=== PATIENT | female | born 1945 | race Caucasian/White ===

== ENCOUNTER 2017-02-02 07:47 | Observation (INO) | payer MEDICARE, MEDICAID ==
[~2017-02-02] VITALS: Ht 167.6 cm; Wt 61.0 kg
[~2017-02-02 07:47] MED LIST: CEPH500T PO; TRAM50 PO
[2017-02-02 07:52] VITALS: BP 112/47; PULSE 77; RESP 14; TEMP 97.7; O2SAT 96
[2017-02-02] MEDS ORDERED: SODIUM CHLORIDE 0.9% FLUSH 10 ML FLUSH IV FLUSH PRN ×2 (08:15→15:15)
--- NOTE | 2017-02-02 08:23 | PD ---
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 Pain is RLQ, constant, nonradiating. Denies any fever, chest pain, sob, n/v, dysuria, hematuria, focal weakness or numbness. Pt has been having constipation and last bowel movement is 2 days ago. Pt has never had colonoscopy and refuses to. PFSH Past Medical History Cancer: Yes ( VAGINAL) Cerebrovascular Accident: Yes (???) Diminished Hearing: No Neurologic: Yes (PATIENT STATES SHE QUESTIONABLY HAS MS, unconfirmed by MRI) Past Surgical History Gynecologic Surgery: Yes (VAGINAL SQUAMOUS CELL REMOVAL) Other Surgery: Yes (VAG CA, BREAST AUG. ) Social History Alcohol Use: No Tobacco Use: Yes Substance Use: No Allergies-Medications (Allergen,Severity, Reaction): Coded Allergies: Codeine (Verified Adverse Reaction, Intermediate, dizzy, 03/30/16) Reported Meds & Prescriptions Reported Meds & Active Scripts Active Reported [magnesium] 400 Mg PO DAILY [vitamin b12] 1,000 Mg IJ WEEKLY Aspirin 81 Mg Chew 81 Mg CHEW DAILY Review of Systems Except as stated in HPI: all other systems reviewed are Neg Physical Exam Narrative GENERAL: 71yo F not in distress. SKIN: Focused skin assessment warm/dry. HEAD: Atraumatic. Normocephalic. CARDIOVASCULAR: Regular rate and rhythm. No murmur appreciated. RESPIRATORY: No accessory muscle use. Clear to auscultation. Breath sounds equal bilaterally. GASTROINTESTINAL: Abdomen soft, +TTP suprapubic region. + RLQ. No rebound tenderness or guarding. +BS. MUSCULOSKELETAL: No obvious deformities. No clubbing. No cyanosis. No edema. NEUROLOGICAL: Awake and alert. No obvious cranial nerve deficits. Motor grossly within normal limits. Normal speech. PSYCHIATRIC: Appropriate mood and affect; insight and judgment normal. Data Data Last Documented VS Vital Signs Date Time Temp Pulse Resp B/P Pulse Ox O2 Delivery O2 Flow Rate FiO2 02/02/17 12:51 62 16 89/58 95 02/02/17 11:11 Room Air 02/02/17 07:52 97.7 Orders Urinalysis - C+S If Indicated (02/02/17 07:54) Complete Blood Count With Diff (02/02/17 08:12) Comprehensive Metabolic Panel (02/02/17 08:12) Lipase (02/02/17 08:12) Prothrombin Time / Inr (Pt) (02/02/17 08:12) Act Partial Throm Time (Ptt) (02/02/17 08:12) Ct Abd/Pel W Iv Contrast(Rout) (02/02/17 08:12) Iv Access Insert/Monitor (02/02/17 08:12) Ecg Monitoring (02/02/17 08:12) Oximetry (02/02/17 08:12) Sodium Chloride 0.9% Flush (Ns Flush) (02/02/17 08:15) Iohexol 350 Inj (Omnipaque 350 Inj) (02/02/17 11:08) Consult General Surgery (02/02/17 ) NPO (02/02/17 12:24) D5-1/2 Ns + Kcl 20 Meq Inj (D5-1/2 Ns + (02/02/17 12:30) (Hub Use Only)Inp Phy Cons/Ref (02/02/17 ) Bupivacaine-Epi Pf 0.25% Inj (Marcaine-E (02/02/17 13:50) Bupivacaine Pf 0.5% Inj (Marcaine Pf 0.5 (02/02/17 13:50) Admit Order (Ed Use Only) (02/02/17 14:07) Labs Laboratory Tests Test 02/02/17 08:38 White Blood Count 8.6 TH/MM3 Red Blood Count 3.91 MIL/MM3 Hemoglobin 13.1 GM/DL Hematocrit 37.2 % Mean Corpuscular Volume 95.2 FL Mean Corpuscular Hemoglobin 33.4 PG Mean Corpuscular Hemoglobin 35.1 % Concent Red Cell Distribution Width 11.9 % Platelet Count 252 TH/MM3 Mean Platelet Volume 8.8 FL Neutrophils (%) (Auto) 66.4 % Lymphocytes (%) (Auto) 23.0 % Monocytes (%) (Auto) 8.1 % Eosinophils (%) (Auto) 2.0 % Basophils (%) (Auto) 0.5 % Neutrophils # (Auto) 5.7 TH/MM3 Lymphocytes # (Auto) 2.0 TH/MM3 Monocytes # (Auto) 0.7 TH/MM3 Eosinophils # (Auto) 0.2 TH/MM3 Basophils # (Auto) 0.0 TH/MM3 CBC Comment DIFF FINAL Differential Comment Prothrombin Time 11.2 SEC Prothromb Time International 1.0 RATIO Ratio Activated Partial 33.7 SEC Thromboplast Time Urine Collection Type CLEAN CATCH Urine Color YELLOW Urine Turbidity SLIGHT Urine pH 6.0 Urine Specific [place] 1.015 Urine Protein TRACE mg/dL Urine Glucose (UA) NEG mg/dL Urine Ketones NEG mg/dL Urine Occult Blood TRACE Urine Nitrite NEG Urine Bilirubin NEG Urine Leukocyte Esterase NEG Urine RBC 4-9 /hpf Urine WBC 0-2 /hpf Urine Squamous Epithelial 6-8 /hpf Cells Urine Amorphous Sediment MOD Microscopic Urinalysis Comment CULT NOT INDICATED Urine Collection Time 0838 Sodium Level 142 MEQ/L Potassium Level 3.8 MEQ/L Chloride Level 109 MEQ/L Carbon Dioxide Level 25.8 MEQ/L Anion Gap 7 MEQ/L Blood Urea Nitrogen 12 MG/DL Creatinine 0.53 MG/DL Estimat Glomerular Filtration 113 ML/MIN Rate Random Glucose 100 MG/DL Calcium Level 9.0 MG/DL Total Bilirubin 0.8 MG/DL Aspartate Amino Transf 16 U/L (AST/SGOT) Alanine Aminotransferase 16 U/L (ALT/SGPT) Alkaline Phosphatase 84 U/L Total Protein 7.1 GM/DL Albumin 3.3 GM/DL Lipase 95 U/L [facility] Medical Decision Making Medical Screen Exam Complete: Yes Emergency Medical Condition: Yes Differential Diagnosis Appendicitis vs. cystitis vs. nephrolithiasis vs. colitis vs. malignancy vs. constipation Narrative Course 71yo F with lower abdominal pain since yesterday. Pt currently does not want any pain medication. She is well appearing. Labs reviewed, no leukocytosis. Lipase normal. CMP unremarkable. UA showed 4-9 RBC. +Squamous. Culture not indicated. CT a/p showed findings questionable for mild case of acute appendicitis in the appropriate clinical setting. Pt reevaluated at bedside and still has point tenderness in RLQ. Discussed with general surgeon Dr. Howard at 11:51am and he states that he will come evaluate the patient. I am keeping her NPO at this time with maintenance IVF. Also informed pt of the questionable right lung base nodules and to follow up with CT chest in [address] given to patient. Pt is admitted to same day surgery under Dr. oHward. Diagnosis Primary Impression: Appendicitis Qualified Code: K35.80 - Acute appendicitis, unspecified acute appendicitis type Admitting Information Admitting Physician Requests: it Sonal Mauricio DO Feb 02, 2017 08:23
[2017-02-02 08:44] LABS: AUTOMATED NEUTROPHIL # 5.7 TH/MM3 (1.8-7.7); BASOPHIL % 0.5 % (0.0-2.0); EOSINOPHIL # 0.2 TH/MM3 (0-0.4); HEMATOCRIT 37.2 % (35.0-46.0); HEMO FLAGS DIFF FINAL; MEAN CELL VOLUME 95.2 FL (80.0-100.0); MEAN CORPUSCULAR HEMOGLOBIN 33.4 PG (27.0-34.0); MEAN CORPUSCULAR HGB CONC 35.1 % (32.0-36.0); MONO % 8.1 % (0.0-8.0); NEUT % 66.4 % (16.0-70.0); PLATELET COUNT 252 TH/MM3 (150-450); RED BLOOD COUNT 3.91 MIL/MM3 (4.00-5.30); RED CELL DISTRIBUTION WIDTH 11.9 % (11.6-17.2); WHITE BLOOD COUNT 8.6 TH/MM3 (4.0-11.0)
[2017-02-02 08:45] LABS: BLOOD, URINE TRACE (NEG); GLUCOSE,URINE NEG (NEG); KETONE, URINE NEG (NEG); NITRITE,URINE NEG (NEG)
[2017-02-02 08:47] LABS: METHOD OF COLLECTION CLEAN CATCH; URINE COLOR YELLOW (YELLW/STRAW)
[2017-02-02 08:50] LABS: COMMENT (UR) CULT NOT INDICATED; COMMENT2 (UR) MUCOUS PRESENT; CULTURE IF INDICATED CULT NOT INDICATED; WBC, URINE 0-2 /hpf (0-5)
[2017-02-02 08:52] LABS: CHLORIDE 109 MEQ/L (98-107); POTASSIUM 3.8 MEQ/L (3.5-5.1); SODIUM (NA) 142 MEQ/L (136-145)
[2017-02-02 08:56] LABS: ANION GAP 7 MEQ/L (5-15); APTT (PATIENT) 33.7 SEC (24.3-30.1); BICARBONATE 25.8 MEQ/L (21.0-32.0); BLOOD UREA NITROGEN 12 MG/DL (7-18); PROTHROMBIN TIME - PATIENT 11.2 SEC (9.8-11.6)
[2017-02-02 08:58] LABS: ALT (GPT) 16 U/L (10-53); AST (GOT) 16 U/L (15-37)
[2017-02-02 08:59] LABS: GLOMERULAR FILTRATION RATE 113 ML/MIN (>89)
[2017-02-02 09:00] LABS: TOTAL BILIRUBIN ADULT 0.8 MG/DL (0.2-1.0)
[2017-02-02 09:01] LABS: ALKALINE PHOSPHATASE 84 U/L (45-117)
[2017-02-02] MEDS ORDERED: IOHEXOL 350 MG/ML 10 ML VIAL (for RAD DIAG) IV ONE (11:08)
[2017-02-02 11:11] VITALS: BP 94/55; PULSE 63; RESP 18; O2SAT 97
--- NOTE | 2017-02-02 11:25 | RADRPT ---
EXAM DATE/TIME: 02/02/2017 10:45 [place] COMPARISON: No previous studies available for comparison. INDICATIONS : Right lower quadrant pain for one day, chronic constipation for three months. IV CONTRAST: 85 cc Omnipaque 350 (iohexol) IV ORAL CONTRAST: No oral contrast ingested. RADIATION DOSE: 7.33 CTDIvol (mGy) MEDICAL HISTORY : Stroke. Carcinoma, vulva. SURGICAL HISTORY : Vaginal surgery, breast augmentation. ENCOUNTER: Initial ACUITY: 1 day PAIN SCALE: 8/10 LOCATION: Right lower quadrant TECHNIQUE: Volumetric scanning of the abdomen and pelvis was performed. Using automated exposure control and ad justment of the mA and/or kV according to patient size, radiation dose was kept as low as reasonably achievable to obtain optimal diagnostic quality images. DICOM format image data is available electro nically for review and comparison. FINDINGS: CT Abdomen: Incidental note is made of an approximate 2.3 cm cyst in the left hepatic lobe with sligh t calcification adjacent to it. The spleen, pancreas, kidneys, adrenals are unremarkable. There is no evidence for any appreciable pathological adenopathy, free fluid, or bowel obstruction. There is a q uestionable tiny 3-4 mm nodule versus tortuous blood vessel right lower lobe. Chronic vascular calci fications are present involving the aorta, iliac arteries without any significant stenosis or aneurys mal dilatations for technique. CT pelvis: There is no evidence for mass, abscess formation, or any significant adenopathy within the pelvis. Appendix is slightly prominent in size without any significant inflammatory changes surround ing it, however mild case of acute appendicitis is not excluded. There is a 2.9 cm masslike area in t he left adnexa may be partially the patient's ovary, however an exophytic fibroid is difficult to exc lude. CONCLUSION: 1. Findings are questionable for mild case of acute appendicitis in the appropriate clinical setting. 2. Questionable tiny right lung base nodule versus overlap of tortuous blood vessels, noncontrast [facility] st CT is suggested in 6 months as a conservative follow up. 3. Probable prominent left ovary, however a small exophytic fibroid is difficult to exclude. Nataliia Hanson MD on February 02, 2017 at 11:11 Board Certified Radiologist. This report was verified electronically.
[2017-02-02] MEDS ORDERED: PROPOFOL 200 MG/20 ML AMP IV ONE (12:00)
[2017-02-02] MEDS ORDERED: ONDANSETRON HCL 4 MG/2 ML VIAL IV PUSH ONE (12:00)
[2017-02-02] MEDS ORDERED: D5-1/2 NS + KCL 20 MEQ INJ 1,000 ML IV SCH (12:30)
[2017-02-02 12:51] VITALS: BP 89/58; PULSE 62; RESP 16; O2SAT 95
[2017-02-02] MEDS ORDERED: BUPIVACAINE/EPINEPHRINE 0.25% PF 30 ML VIAL ONE (13:50)
[2017-02-02] MEDS ORDERED: BUPIVACAINE HCL PF 0.5% 30 ML VIAL ONE (13:50)
[2017-02-02] MEDS ORDERED: fentaNYL CITRATE 250 MCG/5 ML AMP ONE (14:16)
[2017-02-02] MEDS ORDERED: vitamin b12 IJ (15:06)
[2017-02-02] MEDS ORDERED: ASPI81CH CHEW (15:06)
[2017-02-02] MEDS ORDERED: magnesium PO (15:07)
[2017-02-02] MEDS: SODIUM CHLOR 0.9% 1000 ML INJ 1,000 ML IV SCH ×2 (15:13→16:13)
[2017-02-02] MEDS ORDERED: ONDANSETRON HCL 4 MG/2 ML VIAL IV PRN (15:15)
[2017-02-02] MEDS ORDERED: Post-op Orders (for Pharmacy) MISC XX ONE (15:15)
[2017-02-02] MEDS ORDERED: ACETAMINOPHEN/HYDROcodone 325 MG/5 MG TAB PO PRN ×2 (15:15)
[2017-02-02] MEDS ORDERED: ceFAZolin INJ 1,000 MG VIAL ONE (15:17)
[2017-02-02] MEDS ORDERED: SODIUM CHLORIDE 0.9% INJ 50 ML ONE (15:20)
[2017-02-02] MEDS ORDERED: LACTATED RINGER'S 1000 ML INJ 1,000 ML ONE (15:32)
--- NOTE | 2017-02-02 15:32 | HHI.PR ---
Immediate Post Op Note Procedure Date: Feb 02, 2017 Pre Op Diagnosis: acute appendicitis Post Op Diagnosis: same Surgeon: Graham Howard MD Procedure: lap appy Findings: distended appendix, non perforated Complications: none Specimen(s) removed: appendix Estimated blood loss: 5cc Anesthesia: General Drains: None Patient to: PACU Patient Condition: Good Graham Howard MD Feb 02, 2017 15:32
[2017-02-02] MEDS ORDERED: SUGAMMADEX SODIUM 200 MG/2 ML VIAL IV PUSH ONE ×2 (16:24)
[2017-02-02] MEDS ORDERED: LORazepam 2 MG/ML VIAL ONE (16:30)
[2017-02-02] MEDS ORDERED: RESP: ALBUTEROL 2.5 MG/3 ML NEB (PRN) ONE (16:32)
[2017-02-02] MEDS ORDERED: methylPREDNISolone SOD SUCC 125 MG/2 ML VIAL ONE (16:52)
[2017-02-02] MEDS ORDERED: metroNIDAZOLE 500 MG INJ 100 ML IV ONE (18:14)
[2017-02-02] MEDS ORDERED: DO NOT ADM ANY ANTICOAGULANT DRUGS PRN (19:00)
[2017-02-02 19:35] VITALS: O2SAT 94
[2017-02-02 20:00] VITALS: BP 93/73; PULSE 90; RESP 18; TEMP 98.3; O2SAT 92
[2017-02-02] MEDS ORDERED: SODIUM CHLORIDE 0.9% FLUSH 10 ML FLUSH IV FLUSH SCH (21:00)
[2017-02-02] MEDS ORDERED: DOCUSATE SODIUM 100 MG CAP PO SCH (21:00)
[2017-02-03] VITALS: BP 109/69; PULSE 91; RESP 20; TEMP 96.7; O2SAT 94
[2017-02-03 04:00] VITALS: BP 101/66; PULSE 70; RESP 18; TEMP 97.2; O2SAT 95
--- NOTE | 2017-02-03 06:47 | HHI.PR ---
Subjective Subjective Notes no acute issues, tolerating clears, no nausea, minimal abdominal pain Objective Vitals/I&O Vital Signs Date Time Temp Pulse Resp B/P Pulse Ox O2 Delivery O2 Flow Rate FiO2 02/03/17 04:00 97.2 70 18 101/66 95 02/02/17 19:35 Nasal Cannula 2.00 Labs Laboratory Tests Test 02/02/17 08:38 White Blood Count 8.6 Red Blood Count 3.91 Hemoglobin 13.1 Hematocrit 37.2 Mean Corpuscular Volume 95.2 Mean Corpuscular Hemoglobin 33.4 Mean Corpuscular Hemoglobin 35.1 Concent Red Cell Distribution Width 11.9 Platelet Count 252 Mean Platelet Volume 8.8 Neutrophils (%) (Auto) 66.4 Lymphocytes (%) (Auto) 23.0 Monocytes (%) (Auto) 8.1 Eosinophils (%) (Auto) 2.0 Basophils (%) (Auto) 0.5 Neutrophils # (Auto) 5.7 Lymphocytes # (Auto) 2.0 Monocytes # (Auto) 0.7 Eosinophils # (Auto) 0.2 Basophils # (Auto) 0.0 CBC Comment DIFF FINAL Differential Comment Prothrombin Time 11.2 Prothromb Time International 1.0 Ratio Activated Partial 33.7 Thromboplast Time Urine Collection Type CLEAN CATCH Urine Color YELLOW Urine Turbidity SLIGHT Urine pH 6.0 Urine Specific [place] 1.015 Urine Protein TRACE Urine Glucose (UA) NEG Urine Ketones NEG Urine Occult Blood TRACE Urine Nitrite NEG Urine Bilirubin NEG Urine Leukocyte Esterase NEG Urine RBC 4-9 Urine WBC 0-2 Urine Squamous Epithelial 6-8 Cells Urine Amorphous Sediment MOD Microscopic Urinalysis Comment CULT NOT INDICATED Urine Collection Time 0838 Sodium Level 142 Potassium Level 3.8 Chloride Level 109 Carbon Dioxide Level 25.8 Anion Gap 7 Blood Urea Nitrogen 12 Creatinine 0.53 Estimat Glomerular Filtration 113 Rate Random Glucose 100 Calcium Level 9.0 Total Bilirubin 0.8 Aspartate Amino Transf 16 (AST/SGOT) Alanine Aminotransferase 16 (ALT/SGPT) Alkaline Phosphatase 84 Total Protein 7.1 Albumin 3.3 Lipase 95 Cardiovascular: Regular Lungs: Upper airway course sound Abdomen: Other (incisional tenderness, scant dry blood) A/P Assessment and Plan POD 1 Lap appy doing well PLAN Reg diet po pain control oob d/c later today if tolerating reg diet Graham Howard MD Feb 03, 2017 06:47
--- NOTE | 2017-02-03 07:24 | MH ---
cc: LUIS SHAW MD DATE OF ADMISSION 02/02/2017 CHIEF COMPLAINT Abdominal pain, appendicitis. HISTORY OF PRESENT ILLNESS The patient is a 70-year-old female who presents with complaints of acute onset of right lower quadrant abdominal pain. She states that the pain is a 7/10 located in the right lower quadrant, constant nonradiating. The pain started yesterday and has continued to increase in intensity. He never had pain quite like this before. She had a bowel movement two days ago that was normal. She reports she has never had a colonoscopy. She came to the emergency department for further evaluation including CT scan showing a thickened appendix with concern for appendicitis. Her white count was 8.6 and she had no fevers. PAST MEDICAL HISTORY Vaginal cancer. PAST SURGICAL HISTORY 1. Vaginal squamous cell cancer resection 2. Breast augmentation SOCIAL HISTORY Denies ETOH, positive smoking for many years. Denies IVDA. ALLERGIES CODEINE FAMILY HISTORY A family history of cancer in sibling and mother with aneurysm. MEDICATIONS See EMR. REVIEW OF SYSTEMS GENERAL: The patient denies headaches. HEENT: Denies eye pain, ear pain. RESPIRATORY: Denies cough or wheeze. CARDIOVASCULAR: Denies palpitation or chest pain. GI: She by complains of abdominal pain. Denies vomiting. : Denies dysuria, hematuria. MUSCULOSKELETAL: Denies swelling or arthralgias. NEUROLOGIC: Denies numbness or tingling. PSYCH: Denies change in mood or affect. ENDOCRINE: Denies polyuria, polydipsia. PHYSICAL EXAMINATION GENERAL: The patient is in no acute distress. VITAL SIGNS: Temperature 97.7, pulse 62, respirations 16, blood pressure 92/58, saturation 95% on room air. HEENT: PERRLA, pupils equal round reactive. NECK: Supple. Trachea midline. LUNGS: Clear to auscultation, bilateral expansion. HEART: S1-S2 regular. ABDOMEN: Soft, positive tenderness to palpation right lower quadrant. No rebound or guarding. MUSCULOSKELETAL: Warm, well-perfused. NEUROLOGIC: AO x four. 5/5 motor all extremities. PSYCH: Normal judgment. Normal insight. LABORATORY AND DIAGNOSTIC DATA WBC 8.6, hemoglobin 13.1, hematocrit 37.2, platelets 252. Sodium 142, potassium 3.8, chloride 109, BUN 12, creatinine 0.5, calcium 9, AST 16, ALT 16, lipase 95, INR 1, PTT 33. Next CT was reviewed by myself showing thickened appendix, tiny right lower lobe lung nodule, small exophytic fibroid mass. ASSESSMENT The patient is a 71-year-old female complaining of right lower quadrant pain of concern for appendicitis. PLAN After a full clinical, radiologic and laboratory workup of the patient, the above-named issue including concern for acute appendicitis. Plan at this time, we will take the patient to the operating room for laparoscopic appendectomy. The patient will need to be on IV antibiotics, pain control, keep the patient n.p.o. Lars MD YVES Otoole/ELIUD /3:34 AM /7:20 AM
[2017-02-03 07:29] LABS: AUTOMATED NEUTROPHIL # 7.4 TH/MM3 (1.8-7.7); BASOPHIL % 0.2 % (0.0-2.0); EOSINOPHIL % 0.1 % (0.0-4.0); HEMATOCRIT 35.7 % (35.0-46.0); LYMPH % 11.6 % (9.0-44.0); LYMPHOCYTE # 1.1 TH/MM3 (1.0-4.8); MEAN CELL VOLUME 97.7 FL (80.0-100.0); MEAN CORPUSCULAR HEMOGLOBIN 32.6 PG (27.0-34.0); MEAN CORPUSCULAR HGB CONC 33.3 % (32.0-36.0); MONO % 6.3 % (0.0-8.0); NEUT % 81.8 % (16.0-70.0); PLATELET COUNT 245 TH/MM3 (150-450); RED BLOOD COUNT 3.65 MIL/MM3 (4.00-5.30); RED CELL DISTRIBUTION WIDTH 11.9 % (11.6-17.2); WHITE BLOOD COUNT 9.1 TH/MM3 (4.0-11.0)
[2017-02-03 07:34] LABS: HEMO FLAGS DIFF FINAL
[2017-02-03 08:00] VITALS: BP 115/77; PULSE 62; RESP 18; TEMP 96.9; O2SAT 95
--- NOTE | 2017-02-03 08:36 | MP ---
cc: LUIS HOWARD MD DATE OF SURGERY: 02/02/2017 PREOPERATIVE DIAGNOSIS Acute appendicitis. POSTOPERATIVE DIAGNOSIS Acute appendicitis. PROCEDURE PERFORMED Laparoscopic appendectomy. SURGEON Dr. Luis Howard [employer] See OR sheet. ANESTHESIA General endotracheal. IV FLUIDS See anesthesia sheet. ESTIMATED BLOOD LOSS 5 cc. DRAINS None. COMPLICATIONS None. WOUND CLASSIFICATION Clean, contaminated. FINDINGS Distended indurated mid appendix with minimal purulence periappendiceal. No evidence of perforation. INDICATION The patient is a 71-year-old female who presented with right lower quadrant abdominal pain. The pain was consistent with appendicitis. The patient had no fevers and a normal white count. The decision was made for operative intervention including laparoscopic appendectomy. PROCEDURE IN DETAIL The patient was taken to the operating suite, placed in supine position. She was prepped and draped in the usual sterile fashion after induction of general endotracheal anesthesia. A brief timeout was done stating correct patient, procedure and surgical site and all were in agreement with this. Attention was first directed to the umbilicus. A stab beau incision was made after injection of local anesthetic with an 11 blade. A Veress needle was placed and intra-abdominal placement confirmed with saline drop test. The abdomen was insufflated to 15 mmHg pneumoperitoneum. The Veress needle was changed for a 5 mm Visiport and camera. On visual inspection there was no evidence of injury. The patient was noted to have minimal loops of dilated bowel. Two other ports were placed, one suprapubic 5 mm, and a 12 mm left lower quadrant port. The patient was then placed in Trendelenburg and airplaned to the left. Exploration of the right lower quadrant noted somewhat of a thickened and indurated mid appendix. There was periappendiceal purulence. The appendix was identified and grasped and retracted cephalad. A small window was made in the mesoappendix with a [place] and Bovie electrocautery. The 45 Endo MINOR blue load stapler was used to transect the base of the appendix. Next, the mesoappendix was transected with an Endo MINOR stapler. The appendix was placed in an appendiceal bag and removed from the left lower quadrant incision. Hemostasis was obtained with Bovie electrocautery at the staple lines. A Ray-Adilson was used for removing a little bit of blood and removed from the abdomen. Once we were content with this, minimal exploration of the abdomen noted no other significant abnormality. The pneumoperitoneum was removed. The trocars were removed. 0 Vicryl fascial suture was placed to the left lower quadrant, 4-0 Monocryl used for subcuticular suture. Sterile dressings were placed including Mastisol and Steri-Strips. All lap and instrument counts were correct. No complication. The patient tolerated the procedure well. The patient was extubated and taken stable to PACU. MD YVES Kent/BT /3:41 AM /8:26 AM
[2017-02-03] MEDS ORDERED: metroNIDAZOLE 500 MG INJ 100 ML IV SCH (18:00)
--- NOTE | 2017-02-04 11:10 | EKG ---
Date Performed: 02/02/2017 Time Performed: 14:11:57 PTAGE: 71 years EKG: Sinus rhythm WITH OCCASIONAL SUPRAVENTRICULAR PREMATURE COMPLEXES BORDERLINE LEFT AXIS DEVIATION NONSPECIFIC T-WA VE ABNORMALITY BORDERLINE ECG PREVIOUS TRACING : 09/11/2013 12.53 DOCTOR: Dev Rao Interpretating Date/Time 02/04/2017 11:01:01
== END 2017-02-03 11:22 | disposition home or self-care (01) ==
LOC: PHED 07:47 → PHEDA 14:08 → PH3A 18:37
PROVIDERS: ADMIT Surgery; ATTEND Surgery
DX: K35.80 Unspecified acute appendicitis (principal); K59.00 Constipation, unspecified; Z86.73 Personal history of transient ischemic attack (TIA), and cerebral infarction without residual deficits; F17.200 Nicotine dependence, unspecified, uncomplicated; Z85.44 Personal history of malignant neoplasm of other female genital organs; Z79.82 Long term (current) use of aspirin; Z01.810 Encounter for preprocedural cardiovascular examination; Z01.812 Encounter for preprocedural laboratory examination
CPT/HCPCS: 00840; 44970; 74177; 80053; 81001; 83690; 85025; 85610; 85730; 88304; 93005; 94150; 99285; G0378; J0690; J2060; J2405; J2930; J3010; J3480; J7030; J7120; J7613; Q9967